=== PATIENT | female | born 1945 | race Caucasian/White ===

== ENCOUNTER 2016-11-08 07:43 | Emergency (ER) | payer MEDICARE ==
--- NOTE | 2016-11-08 09:23 | Emergency Department Report ---
ED Fall HPI - General Chief Complaint: Back Pain/Injury Stated Complaint: FALL/BACK PX Time Seen by Provider: 11/08/16 09:14 Source: patient, EMS Mode of arrival: Stretcher - History of Present Illness Initial Comments: 71 years old female jail patient brought by EMS with the chief complain off a fall. EMS said that patient rolled off the bed and fell on the ground hit her head and lower back,patient is complaining of lower back pain. No loss of consciousness. No symptoms prior to the fall. No other complaints MD Complaint: fall -: Sudden, This morning Fall From: out of bed When Fall Occurred: just prior to arrival Fall Witnessed: yes, by living facility s Place Fall Occurred: jail[facility] Loss of Consciousness: none Prolonged Down Time?: no Symptoms Prior to Fall: none Location: head, back Quality: sharp Associated Symptoms: denies - Related Data Home Medications Medication Instructions Recorded Confirmed Last Taken Acetaminophen [Tylenol] 325 mg PO Q6HR PRN 11/08/16 11/08/16 Unknown AtorvaSTATin [Lipitor] 80 mg PO QHS 11/08/16 11/08/16 1 Day Ago Memantine HCl [Namenda] 10 mg PO BID 11/08/16 11/08/16 1 Day Ago Oxymetazoline 0.05% [Afrin] 0.05 nsinhaler INNOSTRIL BID 11/08/16 11/08/16 1 Day Ago Quetiapine Fumarate [SEROquel] 50 mg PO BID 11/08/16 11/08/16 1 Day Ago Quetiapine Fumarate [Seroquel] 100 mg PO HS 11/08/16 11/08/16 1 Day Ago Sertraline [Zoloft] 50 mg PO QDAY 11/08/16 11/08/16 11/08/16 Allergies Allergy/AdvReac Type Severity Reaction Status Date / Time peach Allergy Mild Itching Verified 11/08/16 08:14 strawberry Allergy Mild Itching Verified 11/08/16 08:14 tomato Allergy Mild Itching Verified 11/08/16 08:14 ED Review of Systems ROS: Stated complaint: FALL/BACK PX Other details as noted in HPI Comment: Unobtainable due to pts medical conditions Constitutional: denies: chills, fever Respiratory: denies: cough, shortness of breath Cardiovascular: denies: chest pain, palpitations Gastrointestinal: denies: abdominal pain, nausea, vomiting, diarrhea, hematemesis, hematochezia Musculoskeletal: denies: back pain, arthralgia Neurological: denies: headache, weakness ED Past Medical Hx - Past Medical History Previous Medical History?: Yes Hx Hypertension: Yes Hx Dementia: Yes - Surgical History Additional Surgical History: UNKNOWN - Social History Smoking Status: Never Smoker Substance Use Type: None - Medications Home Medications: Home Medications Medication Instructions Recorded Confirmed Last Taken Type Acetaminophen [Tylenol] 325 mg PO Q6HR PRN 11/08/16 11/08/16 Unknown History AtorvaSTATin [Lipitor] 80 mg PO QHS 11/08/16 11/08/16 1 Day Ago History Memantine HCl [Namenda] 10 mg PO BID 11/08/16 11/08/16 1 Day Ago History Oxymetazoline 0.05% [Afrin] 0.05 nsinhaler INNOSTRIL BID 11/08/16 11/08/16 1 Day Ago History Quetiapine Fumarate [SEROquel] 50 mg PO BID 11/08/16 11/08/16 1 Day Ago History Quetiapine Fumarate [Seroquel] 100 mg PO HS 11/08/16 11/08/16 1 Day Ago History Sertraline [Zoloft] 50 mg PO QDAY 11/08/16 11/08/16 11/08/16 History ED Physical Exam - General Limitations: Other General appearance: alert, in no apparent distress - Head Head exam: Present: atraumatic, normocephalic - Eye Eye exam: Present: normal appearance - ENT ENT exam: Present: normal exam - Neck Neck exam: Present: normal inspection, full ROM. Absent: tenderness, meningismus, lymphadenopathy, thyromegaly - Respiratory Respiratory exam: Present: normal lung sounds bilaterally. Absent: respiratory distress, wheezes, rales, rhonchi, stridor, chest wall tenderness, accessory muscle use, decreased breath sounds, prolonged expiratory - Cardiovascular Cardiovascular Exam: Present: regular rate, normal rhythm, normal heart sounds - GI/Abdominal GI/Abdominal exam: Present: soft. Absent: distended, tenderness, guarding, rebound, rigid, normal bowel sounds, mass, bruit, pulsatile mass, hernia - Extremities Exam Extremities exam: Present: normal inspection, full ROM. Absent: tenderness, normal capillary refill - Back Exam Back exam: Present: normal inspection, tenderness, paraspinal tenderness. Absent: CVA tenderness (R), CVA tenderness (L), muscle spasm, vertebral tenderness - Neurological Exam Neurological exam: Present: alert, oriented X3, CN II-XII intact - Skin Skin exam: Present: warm, intact ED Course Vital Signs 11/08/16 11/08/16 08:14 08:25 Temperature 98.2 F Pulse Rate 72 Respiratory 18 18 Rate Blood Pressure 150/77 O2 Sat by Pulse 94 94 Oximetry - Reevaluation(s) Reevaluation #1: 11/08/16 10:32 PATIENT REMAIN STABLE IN THE ER, NO AMS OR HEADACHE. BOTH CT BRAIN AND LUMBAR ARE WITH NO ACUTE ABNORMALITIES. Critical care attestation.: If time is entered above; I have spent that time in minutes in the direct care of this critically ill patient, excluding procedure time. ED Disposition Clinical Impression: Head injury, Back pain due to injury Disposition: DC-01 TO HOME OR SELFCARE Is pt being admited?: No Condition: Stable Referrals: PRIMARY CARE, [Primary Care Provider] - 3-5 Days
--- NOTE | 2016-11-08 10:15 | Cat Scan Report ---
CT scan of head without IV contrast: No previous studies available for comparison. History: Head injury. Findings: The ventricles are midline in location and upper limit of normal in size. The right ETHOLOGIST shunt is stable with tip in the region of third ventricle. No extra-axial fluid collection. Moderate volume loss. Periventricular areas of low attenuation. Normal brainstem and cerebellum. Impression: Small vessel ischemic changes with cortical atrophy. Stable ETHOLOGIST shunt. No hydrocephalus.
--- NOTE | 2016-11-08 10:20 | Cat Scan Report ---
CT scan of lumbar spine: History: Fall, neck injury. Findings: Normal height of vertebral bodies. Decrease in height of intervertebral disc spaces with severe degenerative changes. Calcified abdominal aorta without aneurysm. L1-L2. Degenerative diffuse disc bulge with mild bilateral neural foramina narrowing and facet joint hypertrophy. L2-L3. Diffuse disc bulge with bilateral neuroforaminal narrowing. Degenerative facet joints. No bony central canal spinal stenosis. L3-4. Diffuse disc bulge with severe bilateral neural foraminal narrowing. Degenerative facet joints. Central canal spinal stenosis. L4-L5. Severe bilateral neural foramina narrowing secondary to diffuse degenerative disc bulge and degenerative facet joints. Central canal spinal stenosis. L5-S1. Severe bilateral neural foraminal narrowing secondary to degenerative diffuse disc bulge and osteophytes with degenerative facet joints. Central canal spinal stenosis. No evidence of acute fracture. Impression: Severe degenerative changes lumbar spine. No acute fracture.
[2016-11-08 12:59] VITALS: BP 170/77
== END 2016-11-08 13:06 | disposition home or self-care (01) ==
LOC: ED 07:43
DX: S09.90XA Unspecified injury of head, initial encounter (principal); S39.82XA Other specified injuries of lower back, initial encounter; I10 Essential (primary) hypertension; F03.90 Unspecified dementia, unspecified severity, without behavioral disturbance, psychotic disturbance, mood disturbance, and anxiety; Z91.018 Allergy to other foods; W06.XXXA Fall from bed, initial encounter; Y93.89 Activity, other specified; Y92.89 Other specified places as the place of occurrence of the external cause; Y99.8 Other external cause status
CPT/HCPCS: 70450; 72131